=== PATIENT | female | born 1985 | race American Indian/Alaskan Native ===

== ENCOUNTER 2018-11-01 08:19 | Inpatient (IN) | payer MEDICAID ==
[2018-11-01 16:48] LABS: Hematocrit 33.3 % (30.3-42.9); Hemoglobin 10.9 gm/dl (10.1-14.3); Mean Corpuscular HGB Conc 33 % (30-34); Mean Corpuscular Volume 77 fl (79-97); Platelet Count 349 K/mm3 (140-440); Red Blood Count 4.34 M/mm3 (3.65-5.03); Red Cell Distribution Width 16.3 % (13.2-15.2)
[2018-11-01] MEDS ORDERED: PITOCin/NS 30 UNIT/500ML 30 UNITS/500 ML BAG IV SCH (17:00)
[2018-11-01 17:09] LABS: Alanine Aminotransferase 17 units/L (7-56)
[2018-11-01] MEDS: LACTATED RINGERS 1,000 ML IV SCH (17:10)
[2018-11-01 19:48] LABS: Bilirubin,Urine NEG (Negative); Blood,Urine NEG (Negative); Color,Urine Amber (Yellow); Mucus,Urine 3+ /HPF
[2018-11-01] MEDS ORDERED: NORMODYNE PO SCH (22:00)
--- NOTE | 2018-11-01 22:22 | History and Physical Report ---
History of Present Illness Date of examination: 11/01/18 Date of admission: 11/01/18 08:19 Chief complaint: at 39 weeks, 3 days gestation here for induction of labor due to chronic hypertension. History of present illness: at 39 weeks, 3 days gestation here for induction of labor due to chronic hypertension. Patient has received care at [facility]. LMP 01/29/2018. EDC 11/05/2018. significant for the following: chronic hypertension (on Labetalol), obesity, elevated 1 hour sugar test , UTI (treated with Keflex), anemia (supplemented with iron), positive quad screen (panorama low risk), cervical polyp. labs are as follows: O+, antibody screen negative, pap negative, rubella immune, RPR nonreactive, HIV negative, varicella immune, HSV 2 negative, hemoglobin electrophoresis AA, GC negative, CT negative, quad screen increased risk for Down Syndrome, diabetes screen 147 (3 hour OGTT normal), GBS negative. 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 denies: chlamydia, gonorrhea, hepatitis B, hepatitis C, herpes, HIV, syphilis, trichomonas Family/Genetic History: diabetes, hypertension, cancer Social history: no significant social history, single, lives with family, IV drug use, full code - Obstetrical History Expected Date of Delivery: 11/05/18 Actual Gestation: 39 Week(s) 3 Day(s) : 4 Para: 3 Hx # Term Pregnancies: 4 Number of Pregnancies: 0 Spontaneous Abortions: 0 Induced : 0 Number of Living Children: 3 Medications and Allergies Allergies Allergy/AdvReac Type Severity Reaction Status Date / Time azithromycin [From Zithromax] Allergy Rash Verified 11/01/18 16:26 Home Medications Medication Instructions Recorded Confirmed Last Taken Type No Known Home Medications [No 03/05/16 03/05/16 Unknown History Reported Home Medications] Active Meds: Active Medications Lactated Ringer's (Lactated Ringers) 1,000 mls @ 125 mls/hr IV DIRECT DIMA Last Admin: 11/01/18 17:10 Dose: 125 mls/hr Documented by: Oxytocin/Sodium Chloride (Pitocin/Ns 30 Unit/500ml) 30 units in 500 mls @ 4 mls/hr IV TITR DIMA; Protocol Last Titration: 11/01/18 18:08 Dose: 12 ml/hr, 12 mls/hr Documented by: Labetalol HCl (Normodyne) 100 mg PO BID DIMA Review of Systems All systems: negative (here for induction of labor) - Vital Signs Vital signs: Vital Signs Pulse BP 98 H 140/92 11/01/18 16:40 11/01/18 16:40 Temp Pulse Resp BP Pulse Ox 97.2 F L 86 18 127/60 97 11/01/18 19:26 11/01/18 21:49 11/01/18 19:26 11/01/18 21:49 11/01/18 20:43 - Physical Exam Abdomen: Positive: normal appearance, soft. Negative: distention, tenderness, guarding, rigidity Genitourinary (Female): Positive: normal external genitalia, normal perenium. Negative: perineal/vulvar lesions (no lesions seen on careful exam with bright light upon admission) Vagina: Positive: normal moisture Uterus: Positive: enlarged. Negative: tender Anus/Rectum: Positive: normal perianal skin Extremities: Positive: normal. Negative: edema - Obstetrical FHR: category 1 Uterine Contraction Monitor Mode: External Cervical Dilatation: 3.5 Cervical Effacement Percentage: 70 station: -2 Uterine Contraction Pattern: Regular Uterine Contraction Intensity: Moderate Results Result Diagrams: 11/01/18 14:40 11/01/18 14:40 Abnormal lab results 11/01/18 11/01/18 Range/Units 14:40 14:40 MCV 77 L (79-97) fl MCH 25 L (28-32) pg RDW 16.3 H (13.2-15.2) % Creatinine 0.5 L (0.7-1.2) mg/dL Lactate Dehydrogenase 294 H (91-180) units/L All other labs normal. Assessment and Plan A: at 39 weeks, 3 days gestation. Chronic hypertension. Induction of labor. GBS negative. P: Admit. Pitocin induction of labor. Labetalol 100 mg po BID. Continous EFM. Discussed with patient risks and benefits of Pitocin induction of labor. Patient consented to Pitocin induction of labor.
[2018-11-02] MEDS: LACTATED RINGERS 1,000 ML IV SCH (01:56)
[2018-11-02] MEDS ORDERED: NARCAN 2 MG/2 ML IV PRN (06:20)
--- NOTE | 2018-11-02 06:22 | Anesthesia Day of Surgery ---
Anesthesia Day of Surgery - Day of Surgery Patient Examined: Yes Patient H&P Reviewed: Yes Patient is NPO: Yes Beta Blockers: No Cardiac Clearance: No Pulmonary Clearance: No Rakesh's Test: N/A
--- NOTE | 2018-11-02 06:22 | Anesthesia Consultation ---
Anesthesia Consult and Med Hx - Airway Anesthetic Teeth Evaluation: Good ROM Head & Neck: Adequate Mental/Hyoid Distance: Adequate Mallampati Class: Class I Intubation Access Assessment: Good - Pulmonary Exam CTA: Yes - Cardiac Exam Cardiac Exam: RRR - Pre-Operative Health Status ASA Pre-Surgery Classification: ASA2 Proposed Anesthetic Plan: Epidural - Pulmonary Hx Smoking: No Hx Asthma: No COPD: No Hx Pneumonia: No - Cardiovascular System Hx Hypertension: No - Central Nervous System Hx Seizures: No Hx Psychiatric Problems: No - Endocrine Hx Renal Disease: No Hx End Stage Renal Disease: No Hx Hypothyroidism: No Hx Hyperthyroidism: No - Hematic Hx Anemia: No Hx Sickle Cell Disease: No - Other Systems Hx Alcohol Use: Yes
[2018-11-02] MEDS ORDERED: TUCKS PAD TP PRN (06:40)
[2018-11-02] MEDS ORDERED: LANSINOH TP PRN (06:40)
--- NOTE | 2018-11-02 06:45 | Procedure Note ---
OB Delivery Note - Delivery Date of Delivery: 11/02/18 Surgeon: LANG VALDEZ Estimated blood loss: 300cc - Vaginal Delivery presentation: vertex Delivery position: OA Intrapartum events: none Delivery induction: none Delivery monitor: external FHT, external uterine Route of delivery: Delivery placenta: spontaneous Delivery cord: 3 umbilical vessels Episiotomy: none Delivery laceration: none Anesthesia: none Delivery comments: Spontaneous vaginal delivery at 06:26 of liveborn female weighing 7 lb. 8 oz. over intact perineum with apgars of 8/9. Baby placed immediately on mother's chest after delivery. Baby bulb suctioned. Spontaneous cry and respirations. 3 vessel cord double clamped and cut after cessation of pulsation. Spontaneous d elivery of intact placenta and membranes at 06:32 by maciel mechanism; trailing membranes. EBL 300 ml. Pitocin to IV fluids after delivery of placenta. Fundus firm and midline. No lacerations noted. Vaginal sweep negative. Sponge count correct.
[2018-11-02] MEDS ORDERED: PITOCin/NS 20 UNIT/1000ML DRIP 20 UNITS/1,000 ML BAG IV SCH (07:00)
[2018-11-02] MEDS ORDERED: SODIUM CHLORIDE FLUSH SYRINGE 10 ML IV NR (07:00)
[2018-11-02] MEDS ORDERED: fentaNYL-BUPIV 2 MCG/ML-0.125% 200 MCG/100 ML BAG EPIDURAL SCH (07:00)
[2018-11-02] MEDS ORDERED: NORCO 5/325 PO PRN (08:00)
--- NOTE | 2018-11-02 09:10 | Ultrasound Report ---
FINAL REPORT EXAM: US OB LIMITED HISTORY: Please check for retained placenta TECHNIQUE: Limited transabdominal pelvic obstetrical ultrasound performed. patient. PRIORS: None. FINDINGS: There is an enlarged uterus. Measurements were not obtained. There is no significant endom etrial thickening or evidence of abnormal color flow in the endometrial region. There are no findings to indicate retained products of conception. Adnexal regions not evaluated. IMPRESSION: There is no radiographic evidence for retained products of conception.
[2018-11-02] MEDS: IBUPROFEN PO SCH ×2 (17:57→23:17)
[2018-11-02] MEDS ORDERED: NORMODYNE PO SCH (19:00)
[2018-11-02 20:30] LABS: Hematocrit 27.2 % (30.3-42.9); Hemoglobin 9.4 gm/dl (10.1-14.3)
[2018-11-02] MEDS ORDERED: MILK OF MAGNESIA PO PRN (22:00)
[2018-11-02] MEDS: NORMODYNE PO SCH (22:08)
[2018-11-03] MEDS: IBUPROFEN PO SCH ×2 (05:13→13:32)
--- NOTE | 2018-11-03 10:00 | Progress Note ---
Assessment and Plan A: day 1 S/P spontaneous vaginal delivery. Anemia secondary to and blood loss. Heart murmur. P: Recommended hospitalist consult and cardiology consult to patient. Patient declined both hospitalist consult and cardiology consult. Explained to patient that a new heart murmur is heard and possible etiologies for this and possible sequelae were explained to patient. Patient states she understands and that she is willing to be referred to cardiology as an outpatient but she is not willing to stay in the hospital to be seen by hospitalist and cereal supervisor. Advised patient to be seen within the next few days at [facility] office to obtain cardiology referral and to recheck BP. Advised patient to continue her vitamins and iron supplements at home. Advised patient to continue taking Labetalol 200 mg po BID at home and the following Rx was called to [facility] pharmacy for patient: Labetalol 200 mg, #60, 1 po BID. discharge instructions and warning signs discussed with patient. Advised patient to avoid intercourse, lifting and heavy housework, and driving. Patient voiced understanding of all instructions. Subjective - Subjective Date of service: 11/03/18 Principal diagnosis: day 1 S/P spontaneous vaginal delivery Interval history: day 1 S/P spontaneous vaginal delivery. Patient is doing well. Patient is . She reports a small amount of lochia and she denies heavy bleeding or large clots. She is voiding without difficulty. Ambulating well. Tolerating a regular diet without nausea or vomiting. Patient denies headache, visual disturbance, chest pain, cough, shortness of breath, fatigue, leg pain, abdominal pain, or any other problems. Patient requests discharge today. Patient reports: appetite normal, voiding normally, pain well controlled, flatus, ambulating normally, no dizzy ambulation, no nauseated : doing well Objective - Vital Signs Latest vital signs: Vital Signs Temp Pulse Resp BP BP Pulse Ox 11/03/18 01:09 98.3 F 81 20 127/80 98 11/02/18 22:08 82 130/74 11/02/18 21:15 82 130/74 11/02/18 15:53 98.3 F 84 18 117/69 11/02/18 14:31 98.6 F 94 H 20 147/80 96 11/02/18 10:18 98.6 F 82 24 148/84 95 Intake and Output 02/11/03/18 11/03/18 23:59 07:59 15:59 Intake Total 640 240 Balance 640 240 Intake: Oral 640 240 Other: Total, Intake Amount 240 240 # Voids Void 1 1 - Exam Cardiovascular: Present: Regular rate, Other (Murmur heard) Abdomen: Present: normal appearance, soft. Absent: distention, tenderness, guarding, rigidity Uterus: Present: normal, firm, fundal height below umbilicus. Absent: bogginess, tenderness Extremities: Present: normal. Absent: tenderness, edema - Labs Labs: Abnormal lab results 11/02/18 Range/Units 20:08 Hgb 9.4 L (10.1-14.3) gm/dl Hct 27.2 L D (30.3-42.9) %
--- NOTE | 2018-11-03 10:06 | Discharge Summary ---
Providers - Providers Date of Admission: 11/01/18 08:19 Date of discharge: 11/03/18 Attending physician: ALISSA GUY MD None Primary care physician: ALISSA GUY MD Hospitalization Reason for admission: induction of labor Delivery: Episiotomy: none Laceration: none Other procedures: none complications: none Discharge diagnosis: IUP at term delivered [place] baby: female Pertinent studies: Labs, ultrasound Hospital course: Normal hospital course Condition at discharge: Good Disposition: DC-01 TO HOME OR SELFCARE - Discharge Diagnoses (1) Term delivered Status: Acute (2) Anemia due to blood loss, acute Status: Acute Plan - Provider Discharge Summary Activity: routine, no sex for 6 weeks, no heavy lifting 4 weeks, no strenuous exercise Diet: routine Instructions: routine Additional instructions: Continue your vitamins and iron supplements at home. Continue to take Labetalol 200 mg by mouth every 12 hours (a Rx has been called in to [facility] pharmacy for you). Call your doctor immediately for: * Fever > 100.5 * Heavy vaginal bleeding ( >1 pad per hour) * Severe persistent headache * Shortness of breath * Reddened, hot, painful area to leg or breast - Follow up plan Follow up: ALISSA GUY MD [Primary Care Provider] - 11/05/18
[2018-11-03] MEDS: NORMODYNE PO SCH (10:16)
[2018-11-03 16:48] VITALS: BP 124/76
== END 2018-11-03 16:20 | disposition home or self-care (01) | DRG 774 ==
LOC: LD 08:19 → OB 11-02 08:53
PROVIDERS: ADMIT Obstetrics & Gynecology; ATTEND Obstetrics & Gynecology
PROC: 10E0XZZ Delivery of Products of Conception, External Approach (ICD-10-PCS; principal; 2018-11-02)
DX: O10.92 Unspecified pre-existing hypertension complicating childbirth (principal); Z37.0 Single live birth; Z3A.39 39 weeks gestation of pregnancy; Z83.3 Family history of diabetes mellitus; Z80.9 Family history of malignant neoplasm, unspecified; Z82.49 Family history of ischemic heart disease and other diseases of the circulatory system; O99.214 Obesity complicating childbirth; E66.9 Obesity, unspecified; O99.02 Anemia complicating childbirth; D62 Acute posthemorrhagic anemia
CPT/HCPCS: 36415; 76815; 81001; 82565; 83615; 84450; 84460; 84550; 85014; 85018; 85027; 86592; 86850; 86900; 86901; G0378; A6250; J2590; J7120